=== PATIENT | male | born 1985 | race Caucasian/White ===

== ENCOUNTER 2017-04-24 04:50 | Emergency (ER) | payer OTHER ==
--- NOTE | 2017-04-24 05:09 | ED ---
General Adult HPI - General Source: patient, RN notes reviewed Mode of arrival: ambulatory Limitations: no limitations <Thaddeus Acuña - Last Filed: 04/24/17 05:06> <Jj Nash - Last Filed: 04/24/17 07:56> - General Chief complaint: Fall Stated complaint: Fall-S Time Seen by Provider: 04/24/17 05:04 - History of Present Illness Initial comments: Patient is a pleasant 31-year-old male presenting to the emergency department following a fall. Incident occurred around midnight. Patient was at work any foot sharan when he fell. Patient did roll off his shoulder and struck his head. No loss of consciousness however patient was dazed for a couple of seconds. Patient has felt a little bit lightheaded since that time. Patient has a little bit of stiffness in his neck. Patient has some mild jaw discomfort. No chest pain or dyspnea. No abdominal or back pain. No extremity injury or weakness. Patient states his shoulder does not bother him. (Thaddeus Acuña) - Related Data Home Medications Medication Instructions Recorded Confirmed No Known Home Medications [No 04/24/17 04/24/17 Known Home Medications] Allergies Allergy/AdvReac Type Severity Reaction Status Date / Time No Known Allergies Allergy Verified 04/24/17 07:40 Review of Systems ROS Other: All systems not noted in ROS Statement are negative. Constitutional: Denies: fever Eyes: Denies: eye pain ENT: Denies: ear pain Respiratory: Denies: cough Cardiovascular: Denies: chest pain Endocrine: Denies: fatigue Gastrointestinal: Denies: abdominal pain Genitourinary: Denies: dysuria Musculoskeletal: Denies: back pain Skin: Denies: rash Neurological: Denies: weakness, confusion <Thaddeus Acuña - Last Filed: 04/24/17 05:06> ROS Other: All systems not noted in ROS Statement are negative. <Jj Nash - Last Filed: 04/24/17 07:56> ROS Statement: Those systems with pertinent positive or pertinent negative responses have been documented in the HPI. Past Medical History Past Medical History: No Reported History History of Any Multi-Drug Resistant Organisms: None Reported Additional Past Surgical History / Comment(s): wisdom teeth Past Psychological History: No Psychological Hx Reported Smoking Status: Never smoker Past Alcohol Use History: Occasional Past Drug Use History: None Reported <Thaddeus Acuña - Last Filed: 04/24/17 05:06> General Exam Limitations: no limitations General appearance: alert, in no apparent distress Head exam: Present: atraumatic, normocephalic Eye exam: Present: normal appearance, PERRL, EOMI ENT exam: Present: normal oropharynx Neck exam: Present: normal inspection. Absent: tenderness Respiratory exam: Present: normal lung sounds bilaterally Cardiovascular Exam: Present: regular rate, normal rhythm GI/Abdominal exam: Present: soft. Absent: tenderness Extremities exam: Present: normal inspection, full ROM. Absent: tenderness Back exam: Present: normal inspection. Absent: tenderness Neurological exam: Present: alert, oriented X3, CN II-XII intact. Absent: motor sensory deficit Expanded Motor strength exam: RUE: 5, LUE: 5, RLE: 5, LLE: 5 Psychiatric exam: Present: normal affect, normal mood Skin exam: Present: normal color <Thaddeus Acuña Last Filed: 04/24/17 05:06> General appearance: alert, in no apparent distress Head exam: Present: atraumatic, normocephalic, normal inspection Eye exam: Present: normal appearance, PERRL, EOMI. Absent: scleral icterus, conjunctival injection, periorbital swelling ENT exam: Present: normal exam, mucous membranes moist Neck exam: Present: normal inspection. Absent: tenderness, meningismus, lymphadenopathy Respiratory exam: Present: normal lung sounds bilaterally. Absent: respiratory distress, wheezes, rales, rhonchi, stridor Cardiovascular Exam: Present: regular rate, normal rhythm, normal heart sounds. Absent: systolic murmur, diastolic murmur, rubs, gallop, clicks GI/Abdominal exam: Present: soft, normal bowel sounds. Absent: distended, tenderness, guarding, rebound, rigid Extremities exam: Present: normal inspection, full ROM, normal capillary refill. Absent: tenderness, pedal edema, joint swelling, calf tenderness Back exam: Present: normal inspection Neurological exam: Present: alert, oriented X3, CN II-XII intact Psychiatric exam: Present: normal affect, normal mood Skin exam: Present: warm, dry, intact, normal color. Absent: rash <Jj Nash - Last Filed: 04/24/17 07:56> Course <Thaddeus Acuña - Last Filed: 04/24/17 05:06> <Jj Nash - Last Filed: 04/24/17 07:56> Vital Signs 04/24/17 04:58 Temperature 97.5 F L Pulse Rate 97 Respiratory 73 H Rate Blood Pressure 135/74 O2 Sat by Pulse 97 Oximetry - Reevaluation(s) Reevaluation #1: 04/24/17 07:56 Sulfa patient regarding results, patient is aware. (Jj Nash) Medical Decision Making <Thaddeus Acuña - Last Filed: 04/24/17 05:06> - Radiology Data Radiology results: report reviewed (CT brain is negative for acute disease), image reviewed <Jj Nash - Last Filed: 04/24/17 07:56> - Medical Decision Making Female ER for evaluation regarding fall, was a work-related injury. Patient does have post concussive like symptoms, CT is negative for acute disease and patient can be discharged home (Jj Nash) Disposition <Thaddeus Acuña - Last Filed: 04/24/17 05:06> <Jj Nash - Last Filed: 04/24/17 07:56> Clinical Impression: Fall, Concussion, Head injury Disposition: HOME SELF-CARE Condition: Fair Instructions: Head Injury (ED) Referrals: Jj Johnson MD [Primary Care Provider] - 1-2 days
--- NOTE | 2017-04-24 07:16 | CT ---
EXAM: CT Head Without Intravenous Contrast CLINICAL HISTORY: Reason: fall TECHNIQUE: Axial computed tomography images of the head/brain without intravenous contrast. CTDI is 57.40 mGy and DLP is 1236.60 mGy-cm. This CT exam was performed using one or more of the following dose reduction techniques: automated exposure control, adjustment of the mA and/or kV according to patient size, and/or use of iterative reconstruction technique. COMPARISON: No relevant prior studies available. FINDINGS: Brain: Unremarkable. No acute hemorrhage. Mild mucosal thickening of the paranasal sinuses without air fluid level. Bones/joints: Corticated lucency near the superior aspect of the right maxillary sinus on series 4 image 11, possibly vascular channel or chronic injury. If there is high clinical suspicion for acute fracture to this region, dedicated CT sinus may be obtained for further evaluation. Soft tissues: 11 mm calcified nodule in the right vertex scalp (series 3 image 55); recommend correlation with physical exam. Sinuses: Moderate opacification of the maxillary sinuses without air- fluid level. Mastoid air cells: Unremarkable as visualized. No mastoid effusion. IMPRESSION: 1. No acute intracranial abnormality. 2. Corticated lucency near the superior aspect of the right maxillary sinus on series 4 image 11, possibly vascular channel or chronic injury. If there is high clinical suspicion for acute fracture to this region, dedicated CT sinus may be obtained for further evaluation. 3. Moderate opacification of the maxillary sinuses without air-fluid level. 4. 11 mm calcified nodule in the right vertex scalp (series 3 image 55); recommend correlation with physical exam. EXAM: CT Cervical Spine Without Intravenous Contrast CLINICAL HISTORY: Reason: fall TECHNIQUE: Axial computed tomography images of the cervical spine without intravenous contrast. CTDI is 23.60 mGy and DLP is 630.60 mGy-cm. This CT exam was performed using one or more of the following dose reduction techniques: automated exposure control, adjustment of the mA and/or kV according to patient size, and/or use of iterative reconstruction technique. COMPARISON: No relevant prior studies available. FINDINGS: Vertebrae: No acute fracture. Straightening of the usual cervical lordosis. Discs/spinal canal/neural foramina: No acute findings. Soft tissues: Unremarkable. Lung apices: Unremarkable as visualized. IMPRESSION: No acute fracture.
[2017-04-24 08:14] VITALS: BP 112/62; PULSE 69; RESP 18; TEMP 97.4
== END 2017-04-24 08:14 | disposition home or self-care (01) ==
LOC: EC 04:50
DX: S06.0X0A Concussion without loss of consciousness, initial encounter (principal); W17.89XA Other fall from one level to another, initial encounter; Y93.89 Activity, other specified; Y92.69 Other specified industrial and construction area as the place of occurrence of the external cause; Y99.0 Civilian activity done for income or pay
CPT/HCPCS: 70450; 72125; 99283

== ENCOUNTER → 2017-04-25 | Outpatient (CLI) | payer OTHER ==
--- NOTE | 2017-04-25 11:35 | CT ---
EXAMINATION TYPE: CT facial bones wo con DATE OF EXAM: 04/25/2017 COMPARISON: NONE HISTORY: head contusion CT DLP: 660.8 mGycm Automated exposure control for dose reduction was used. TECHNIQUE: CT scan of the facial bones is performed without contrast, axial images are obtained, sheldon nal reformatted images are also reviewed. FINDINGS: There is moderate mucosal thickening involving the maxillary sinuses and the right ethmoid sinus. Area in question on the CT scan of the brain represents a vascular channel. Visualized portions of the brain are unremarkable. The orbits are normal. Both zygomatic arches are intact. The pterygoid plates are intact. The stern of the maxillary sinuses and orbits are intact. No nasal fracture is seen. The mandible is unremarkable. IMPRESSION: 1. NO ACUTE OSSEOUS LESION. 2. MODERATE SINUS DISEASE INVOLVING THE MAXILLARY SINUSES AND A LESSER DEGREE OF MUCOSAL DISEASE INVO LVING THE ETHMOID SINUSES.
== END | disposition home or self-care (01) ==
LOC: RADCTMAIN 10:56
PROVIDERS: ATTEND Emergency Medicine
DX: J32.8 Other chronic sinusitis (principal); S00.93XA Contusion of unspecified part of head, initial encounter
CPT/HCPCS: 70486